=== PATIENT | female | born 1990 ===

== ENCOUNTER 2025-03-30 09:46 | Outpatient (CLI) | payer MEDICAID, SELFPAY ==
[2025-04-01 08:44] LABS: HPV Source Cervical
[2025-04-02 12:55] LABS: Pap Test Digital Imaging Done
== END 2025-03-30 09:47 | disposition home or self-care (01) ==
PROVIDERS: PCP Family Medicine; Visit Provider Family Medicine
DX: R10.9 Unspecified abdominal pain (principal); Z11.51 Encounter for screening for human papillomavirus (HPV); Z12.4 Encounter for screening for malignant neoplasm of cervix; Z13.6 Encounter for screening for cardiovascular disorders
CPT/HCPCS: 80053; 80061; 86140; 86364; 87624; 87625; 88141; 88142; 88175

== ENCOUNTER 2025-07-21 16:18 | Emergency (ER) | payer MEDICAID, SELFPAY ==
--- OUTSIDE RECORDS SUMMARY | 2025-07-21 16:19 | XMS_ITS | Clinical Summary ---
Author Organization [place] Address [facility] [place] [address] Care Team Providers Care Napper Grinder Name Role Phone No Ref-Primary, Physician Primary Care Provider Allergies No known active allergies Medications MedicationSigDispense QuantityRefillsLast FilledStart DateEnd DateStatus acetaminophen (TYLENOL) 500 MG tablet Indications:S/P sectionTake 2 tablets (1,000 mg) by mouth every 4 hours as needed for other (multimodal surgical pain management along with NSAIDS and opioid medication as indicated based on pain control and physical function) 30 tablet 03/04/2020Active ferrous sulfate (FEROSUL) 325 (65 Fe) MG tablet Indications:Anemia due to blood loss, acuteTake 1 tablet (325 mg) by mouth daily 30 tablet 03/03/2020Active ibuprofen (ADVIL/MOTRIN) 200 MG tablet Indications:S/P sectionTake 3 tablets (600 mg) by mouth every 6 hours as needed for other (cramping) 30 tablet 03/03/2020Active oxyCODONE (ROXICODONE) 5 MG tablet Indications:S/P sectionTake 1 tablet (5 mg) by mouth every 4 hours as needed for moderate to severe pain 24 tablet 03/03/2020Active Active Problems ProblemNoted DateDiagnosed DateAnemia due to blood loss, acute03/03/2020S/P epkcita8903/01/2020Indication for care in labor or /28/2020 Social History Tobacco UseTypesPacks/DayYears UsedDateSmoking Tobacco: NeverSmokeless Tobacco: NeverAlcohol UseStandard Drinks/WeekCommentsNot Currently0 (1 standard drink = 0.6 oz pure alcohol)AUDIT-CAnswerDate RecordedQ1: How often do you have a drink containing alcohol?Never02/29/2020Average Number of DrinksNot on file02/29/2020 Frequency of Binge DrinkingNot on file02/29/2020Edinburgh Depression ScaleAnswerDate RecordedEdinburgh Depression Scale Duhqb022 Last EPDS Self Harm ResultNot on file03/04/2020CommentsNoSex and Gender InformationValueDate RecordedSex Assigned at BirthNot on fileLegal SexFemale 02/29/2020 10:53 AM CDTGender IdentityNot on fileSexual OrientationNot on file Last Filed Vital Signs Vital SignReadingTime TakenCommentsBlood Zmihdwmm384/6508 10:21 AM CDT Yzpry3320/31/2020 3:34 PM YSSXsmsvrclhdt91.5 ??C (97.7 ??F)03/04/2020 10:21 AM CDTRespiratory Briz938803/04/2020 10:21 AM CDTOxygen Vskmvogspc19%03/02/2020 5:35 AM CDTInhaled Oxygen Concentration--Weight--Height--Body Mass Index-- Plan of Treatment Not on file Care Teams Team MemberRelationshipSpecialtyStart DateEnd Date No Ref-Primary, Physician PCP - General03/01/20
[2025-07-21 16:22] VITALS: BP 110/73; PULSE 81; RESP 20; TEMP 36.2; O2SAT 99
--- NOTE | 2025-07-21 16:27 | CRLHL7_ITS ---
For Patients: As a result of the Century Cures Act, medical imaging exams and procedure reports are released immediately into your electronic medical record. You may view this report before your referring provider. If you have questions, please contact your health care provider. Indication: FALL, PAIN Technique: Three views of the right ankle Comparison: Right ankle radiograph on May 11, 2024 Findings/Impression: No acute fracture or malalignment. No ankle effusion. The bones are unremarkable. Minimal soft tissue edema along the lateral malleolus. Dictated by Iam Gallardo MD @ 07/21/2025 5:48:52 PM (Electronically Signed)
--- NOTE | 2025-07-21 16:48 | CRLHL7_ITS ---
For Patients: As a result of the Century Cures Act, medical imaging exams and procedure reports are released immediately into your electronic medical record. You may view this report before your referring provider. If you have questions, please contact your health care provider. INDICATION: Cervical spine tenderness. COMPARISON: None. TECHNIQUE: CT of the cervical spine without contrast. Multiplanar axial, coronal, and sagittal reformats were reconstructed. FINDINGS: No fracture. Reversal of the normal cervical lordosis is usually positional. Mild disc degenerative change. No facet arthritis. No severe neural foraminal narrowing. No central canal stenosis. No destructive bony lesions. No cervical prevertebral soft tissue swelling. Prominent bilateral cervical lymph nodes at multiple stations. One right level II a lymph node is technically enlarged by size criteria measures 1.5 x 1.0 cm. Normal zack architecture with a preserved fatty hilum. IMPRESSION: 1. No acute or traumatic findings on cervical spine CT. 2. Bilateral cervical adenitis. Correlate for symptoms. Please note that all CT scans at this facility use dose modulation, iterative reconstruction, and/or weight-based dosing when appropriate to reduce radiation dose to as low as reasonably achievable. Dictated by Aparna Sanchez MD @ 07/21/2025 5:45:37 PM (Electronically Signed)
--- NOTE | 2025-07-21 16:48 | CRLHL7_ITS ---
For Patients: As a result of the Cures Act, medical imaging exams and procedure reports are released immediately into your electronic medical record. You may view this report before your referring provider. If you have questions, please contact your health care provider. Indication: Righ groin/hip pain after fall Technique: Frontal view of the pelvis and frontal and lateral views of the right Comparison: None Findings/Impression: No acute fracture or malalignment. The bones are unremarkable. The soft tissues are without acute abnormality. Left of midline intrauterine device and a few tiny right pelvic phleboliths. Dictated by Iam Gallardo MD @ 07/21/2025 5:50:06 PM (Electronically Signed)
--- NOTE | 2025-07-21 16:48 | CRLHL7_ITS ---
For Patients: As a result of the Century Cures Act, medical imaging exams and procedure reports are released immediately into your electronic medical record. You may view this report before your referring provider. If you have questions, please contact your health care provider. INDICATION: Fall and hit back of head. COMPARISON: None. TECHNIQUE: CT of the brain / head without intravenous contrast. Multiplanar axial, coronal, and sagittal reformats were reconstructed. FINDINGS: No intracranial hemorrhage. Normal appearance of the white matter. No acute or subacute cortically based infarct. No cerebral edema. 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 No mass effect. Normal ventricles. No skull fractures. No worrisome focal bone lesion. IMPRESSION: 1. No acute or traumatic findings. 2. 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 No mass effect or hydrocephalus. Please note that all CT scans at this facility use dose modulation, iterative reconstruction, and/or weight-based dosing when appropriate to reduce radiation dose to as low as reasonably achievable. Dictated by Aparna Sanchez MD @ 07/21/2025 5:42:19 PM (Electronically Signed)
--- NOTE | 2025-07-21 17:54 | ED.FALL ---
HPI - Fall General Date Seen: 07/21/25 Chief Complaint: Fall/Minor Trauma Stated Complaint: fell, hit head, injured foot Time Seen by Provider: 07/21/25 16:35 Source: patient and telephone sterilizer Mode of arrival: wheelchair Limitations: no limitations History of Present Illness HPI Narrative: Patient is a 35-year-old female presenting to the emergency department for a fall. She states she hit the back of her head when she slipped on the ice. She also states she twisted her right ankle. Denies any numbness. States she has pain to her right groin and right ankle. Denies any foot or knee pain. Does states she is having some neck pain. Denies a headache. No other concerns at this time. Related Data Home Medications ?Medication ?Instructions ?Recorded ?Confirmed ashwagandha root extract 2 tab PO .QD 03/30/25 03/30/25 Allergies Allergy/AdvReac Type Severity Reaction Status Date / Time Latex, Natural Rubber Allergy Mild Verified 03/30/25 08:54 Review of Systems Narrative: Pertinent systems reviewed and were negative unless stated in HPI PFSH PFSH Surgical History History of esophagogastroduodenoscopy (EGD) ?Z98.890 - Other specified postprocedural states (ICD-10) Hx of cholecystectomy ?Z90.49 - Acquired absence of other specified parts of digestive tract (ICD-10) History of D&C ?Z98.890 - Other specified postprocedural states (ICD-10) History of ?Z98.891 - History of uterine scar from previous surgery (ICD-10) Family History Mother Diabetes Social History Narrative: Pbxi-in-wiye mom. Nonsmoker, no alcohol use. What is your current living situation?: I presently have a place to live Problems where you live: no known problems In the past 12 months, utilities in danger of being shut off: no In past 12 months, lack of transportation kept you from medical appts, meetings, work, or getting things needed for daily living: declined to answer In the past 12 mos, have been you worried that your food would run out before you had money to buy more?: sometimes true In the past 12 mos, the food you bought just didn't last and you didn't have money to buy more?: sometimes true How often does anyone, including family, friends and others, physically hurt you: never How often does anyone, including family, friends and others, insult or talk down to you: rarely How often does anyone, including family, friends and others, threaten you with harm: never How often does anyone, including family, friends and others, scream or curse at you: rarely Health Related Social Needs: food insecurity (Z59.41) and Other personal risk factors, not elsewhere classified (Z91.89) Exam Narrative: Exam Narrative: Const: Well-nourished, Well-developed, in mother distress Eyes: PERRL, no conjunctival injection, and symmetrical lids HENT: Atraumatic external nose and ears. Moist mucous membranes. CVS: Dorsalis pedis pulses 2+ bilaterally MSK:Extremities w/o deformity, tenderness noted to right groin and diffusely around the ankle on the right side. Worse to the lateral malleolus. No knee pain or foot pain on palpation. Midline cervical spine tenderness. Skin: Warm, Dry. No rashes or lesions. Neuro: Normal Muscle tone, No focal neurological deficits. Psych: Awake, Alert, & Oriented x3. Appropriate mood and affect. Const: Vital Signs, click to edit/add: Vital Signs - 24 hr 07/21/25 16:22 Temperature 97.2 F L Pulse Rate [Pulse Oximeter] 81 Respiratory Rate 20 Blood Pressure [Ri ght Upper Arm] 110/73 Pulse Oximetry 99 Oxygen Delivery Me thod Room Air Course Vital Signs Vital signs: Initial Vital Signs Temperature 97.2 F L 07/21/25 16:22 Temperature Source Temporal Artery Scan 07/21/25 16:22 Pulse Rate 81 07/21/25 16:22 Respiratory Rate 20 07/21/25 16:22 Blood Pressure 110/73 07/21/25 16:22 Blood Pressure Mean 85 07/21/25 16:22 Blood Pressure Position Sitting 07/21/25 16:22 Pulse Oximetry 99 07/21/25 16:22 Oxygen Delivery Method Room Air 07/21/25 16:22 Vital Signs Temperature 97.2 F L 07/21/25 16:22 Pulse Rate 81 07/21/25 16:22 Respiratory Rate 20 07/21/25 16:22 Blood Pressure 110/73 07/21/25 16:22 Pulse Oximetry 99 07/21/25 16:22 Oxygen Delivery Method Room Air 07/21/25 16:22 Temperature 97.2 F L 07/21/25 16:22 Pulse Rate 81 07/21/25 16:22 Respiratory Rate 20 07/21/25 16:22 Blood Pressure 110/73 07/21/25 16:22 Pulse Oximetry 99 07/21/25 16:22 Oxygen Delivery Method Room Air 07/21/25 16:22 Medications Administered Medications: Discontinued Medications Generic Name Dose Route Start Last Admin Trade Name Freq PRN Reason Stop Dose Admin Oxycodone HCl 5 mg 07/21/25 17:35 07/21/25 17:50 Oxycodone 5 Mg Tablet PO 07/21/25 17:36 5 mg ONCE ONE Administration MDM - Fall MDM Narrative Medical decision making narrative: Patient is a 35-year-old female presenting to emergency department for a fall. He has pain to the right ankle and right hip. Will order x-rays of these to look for signs of fractures. She does have the midlines cervical spine tenderness do this I will order that neck CT. Will also order a head CT. Images interpreted by myself and the radiologist independently. X-rays of the right hip showed no acute concerning abnormality. X-ray of the right ankle show some minimal soft tissue edema along the lateral malleolus consistent with her pain. No other abnormality seen. CT scan interpreted by myself and the radiologist showed no acute spinal injuries. She does have some bilateral cervical adenitis. Is not having any respiratory or infectious symptoms. 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 This can be follow-up outpatient. Did give her oxycodone for pain. She will be discharged. Crutches offered. Imaging Data X-ray right ankle: Attestation: I have reviewed the pertinent imaging results. Radiologist's impression: No acute fracture or malalignment. No ankle effusion. The bones are unremarkable. Minimal soft tissue edema along the lateral malleolus. Dictated by Iam Gallardo MD @ 07/21/2025 5:48:52 PM X-ray right hip: Attestation: I have reviewed the pertinent imaging results. Radiologist's impression: No acute fracture or malalignment. The bones are unremarkable. The soft tissues are without acute abnormality. Left of midline intrauterine device and a few tiny right pelvic phleboliths. Dictated by Iam Gallardo MD @ 07/21/2025 5:50:[address] scan cervical spine: Attestation: I have reviewed the pertinent imaging results. Radiologist's impression: 1. No acute or traumatic findings on cervical spine CT. 2. Bilateral cervical adenitis. Correlate for symptoms. Please note that all CT scans at this facility use dose modulation, iterative reconstruction, and/or weight-based dosing when appropriate to reduce radiation dose to as low as reasonably achievable. Dictated by Aparna Sanchez MD @ 07/21/2025 5:45:[address] scan head: Attestation: I have reviewed the pertinent imaging results. Radiologist's impression: 1. No acute or traumatic findings. 2. 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 No mass effect or hydrocephalus. Please note that all CT scans at this facility use dose modulation, iterative reconstruction, and/or weight-based dosing when appropriate to reduce radiation dose to as low as reasonably achievable. Dictated by Aparna Sanchez MD @ 07/21/2025 5:42:19 PM Discharge Plan Discharge Clinical Impression: Right ankle sprain Qualifiers: Encounter type: initial encounter Involved ligament of ankle: unspecified ligament Qualified Code(s): S93.401A - Sprain of unspecified ligament of right ankle, initial encounter Neck strain Qualifiers: Encounter type: initial encounter Qualified Code(s): S16.1XXA - Strain of muscle, fascia and tendon at neck level, initial encounter Patient Disposition: Home, Self-Care Condition: Stable Instructions: Ankle Sprain (ED) Additional Instructions: Take Tylenol and ibuprofen as needed for pain. If that is not working use the oxycodone. You can weight bear as tolerated. Use the crutches as needed. Do not be surprised if you have more pain tomorrow morning. Return to emergency department for new or worsening symptoms. I do recommend following through primary care provider for your ankle pain and and an incidental pineal cyst Prescriptions: No Action debby root extract 2 tab PO .QD Follow Up/Referrals: Mani Webb MD [Primary Care Provider, Family Practice] Stand Alone Forms: [employer] Info Instructions
--- OUTSIDE RECORDS SUMMARY | 2025-07-21 18:04 | XMS_ITS | Data Portability ---
Author Organization [facility] Address [address] [place] [address] [place] [facility] [address] Assessment Encounter Date Assessment Date Assessment LastModified by Organization Details LastModified Time 05/05/2024 05/05/2024 - per katarina patrick check labs and imaging thyroid - XR RLE - request that patient sign up for Family Planning and schedule WWE for pap, evaluation of discharge, IUD xmtmrgcjjbmojxsmmktc6Dde rsgegqyyg43/02/2024 13:30:29 Plan of Treatment Reminders Order DateSubmit DateProviderLast Modified ByOrganization DetailsLast Modified TimeDetailsAppointmentsNone recorded.LabCBC w/ auto diff/09/2023 ATHENANot /09/2024 15:04:30CMP, serum or dunjpx64 ATHENANot wpuhgpnmb09/08/2024 16:22:55TSH, serum or enbljb59/09/2023 ATHENANot fpvivpwpa20/08/2024 19:48:32lipid panel, serum/09/2023 ATHENANot cnbexffme53/09/2024 15:04:30ReferralNone recorded.ProceduresNone recorded.SurgeriesNone recorded.ImagingUS, qihbfgg84THENANot wsujfczjv25/05/2024 17:47:20XR, ankleTHENANot available 07/08/2024 17:39:42Medication OrdersNone recorded. Patient TargetsNo targets recorded. Patient InstructionsNo instructions recorded. Reason for Referral None Reported. Results Created Date Observation Date Name Description Value Unit Range Abnormal Flag Note LastModifiedBy Organization Detail LastModifiedTime 05/13/2024 05/13/2024 lipid panel, serum creatinine 0.6 Not AvailableNot Sipfbkxip27/10/2024 13:15:241lipid panel, rhogkREA65Jaz AvailableNot Jczluohfb68/10/2024 13:15:241/05/2024lipid panel, serumwhite blood count6.57Not AvailableNot Ssdpqesob23/10/2024 13:15:24 lipid panel, nfeqsQAY33.9Not AvailableNot Available 05/13/2024 13:15:241lipid panel, dbgqxkgy926Dqg AvailableNot Zorpremwd68/10/2024 13:15:241lipid panel, serumtotal bltqqylwafn401xhiyNyk AvailableNot Vtexcguou12/10/2024 13:15:05/13/2024lipid panel, wmzmreomfckbqcogpl988hxiiKdu AvailableNot Available 05/13/2024 13:15:241lipid panel, brrzzTPQ49tsnFwf Available Not Pqdthtgme32/10/2024 13:15:241lipid panel, svaoxESW513uxdm Not AvailableNot Awmrtqtbm69/10/2024 13:15:BC w/ auto diffcreatinine0.6Not AvailableNot Clnbfuxei95/10/2024 13:09:05/13/2024BC w/ auto knlyUJN80Biz AvailableNot Tbxqtpvun73/10/2024 13:09:36 BC w/ auto diffwhite blood count6.57Not AvailableNot Hmoemynnr46/10/2024 13:09:BC w/ auto gpqdUYN24.9Not AvailableNot Lfthkusqt41/10/2024 13:09:3610/10/710928/10/2024CBC w/ auto diffplt 292Not AvailableNot Qmnderles02/10/2024 13:09:BC w/ auto difftotal mjdwhkvcpab565awpoQiz AvailableNot Qqnzoecey97/10/2024 13:09:36 BC w/ auto wgizcnfwmslkqzspq595snpmLpj AvailableNot Cvdcvyvms98/10/2024 13:09:BC w/ auto jqbdBNN65zuvQgy AvailableNot Ysnmqexrl30/10/2024 13:09:BC w/ auto diffLDL 112highNot AvailableNot Tygikmqzf40/10/2024 13:09:MP, serum or plasmacreatinine0.6Not AvailableNot Owxjhcfgn81/08/2024 16:20:20 MP, serum or wyhboqZVR26Bgc AvailableNot Available 05/11/2024 16:20:MP, serum or plasmawhite blood count6.57 Not AvailableNot Bflxymicd43/08/2024 16:20:MP, serum or qalidcBGU21.9Not AvailableNot Sjllqoxgh95/08/2024 16:20: CMP, serum or dbdbhczml822Dnm AvailableNot Cibmlhils12/08/2024 16:20:20 MP, serum or plasmatotal xhtfsmaftzu915arnmPaw AvailableNot Mzvkpajbm91/08/2024 16:20:MP, serum or plasma dqfqvbhynngqy472llkgYxv AvailableNot Mmomomlah19/08/2024 16:20:05/11/2024MP, serum or cmxbqgGOJ70vzfLrc AvailableNot Nlapiustc62/08/2024 16:20:MP, serum or nlumjbDLV970alntIch AvailableNot Mipxuzzik25/08/2024 16:20:TSH, serum or plasmaTSH1.780Not AvailableNot Ivjcrnpkh90/08/2024 22:19:19141XR, ankleNo observation recorded.xercfcz6Vhj Ehutniuyn82/06/2024 00:17:41109/08/2023 05/11/2024US, thyroidNo observation recorded.wubawif3Bii Nypesbyde50/06/2024 00:17:41 Result Notes None recorded. Problems Name Problem SNOMED Code Status Onset Date Resolution Date Notes Provider Name and Address Organization Details Recorded Time Human papillomavirus deoxyri bonucleic acid detected, high risk on cervical specimen 862117644 Active 06/13/202405/2023 pap + HPV 16 Colposcopy 06/2023 benign FU cotest in [address] [facility] [place], [address], [facility] [employer]06/13/2024 14:20:23Uses IUD (intrauterine device) etfwktiocdirz542216597Facjdq15/10/2024laced May 2023 NF+VEE SAEZ MD [address] [place] [address], [phone], [facility] [employer] Xxvcwrykdzebe72/10/2024 14:27:06 Problem Notes None recorded. Procedures Surgical History Date Name Laterality Status Provider Name and Address Organization Details Recorded Time 06/18/2023 Colonoscopy MD Ivy Dozier [facility] [place], [address], [facility] [employer] Doibnykplcufn71/10/2024 14:19:3Date of Last Pap SmearcompletedAMD Ivy MCDANIELS [facility] [place], [address], [facility] [employer] Veajiczvrpgns06/10/2024 14:18:Cesarean delivery MD Ivy Beck [facility] [place], [address], [facility] [employer] Djcojnyaqmzez51/02/2024 10:24:Cholecystectomy MD Ivy Beck [facility] [place], [address], [facility] [employer]05/05/2024 10:23:17 Imaging Results None recorded. Procedure Notes None recorded. Medical Equipment None Reported. Medications Name Sig Start Date Stop Date Status Note LastModified by Organization Details LastModified Time Mirena 21 mcg/24 hr (up to 8 years) 52 mg intrauterine device Take by intrauterine route. 05/30/2023 activePLaced at [facility] +CNot AvailableNot AvailableNot Available Vitals Date Recorded Body height Body mass index (BMI) Body weight Heart rate Oxygen saturation Systolic And Diastolic Provider Name and Address Organization Details Last Updated DateTime 4 154.94 cm 32.9 kg/m2 22359.0 7 g 69 /min 97 % 100/73 mm[Hg] Melinda Rockwell MD [address] [place] [address], [phone] , [place] [facility] 13:21:15 Social History None recorded. Functional Status None recorded. Mental Status None recorded. Family History Relationship Description Onset Age of this Age Resolved Age Notes LastModified by Organization Details LastModified Time Father No current problems or disabilit y jnbixqnxg6Hjb fshyznsjo70/02/2024 10:16:31MotherNo current problems or npptciamocxdduuoaqk2Siy /02/2024 10:16:31 Medical History No medical history recorded. Gynecological History Statement/Question Response Abnormal Pap Y Date of Last Pap Smear 06/02/2023 Colonoscopy 06/18/2023 Obstetrics History GPAL:G 3 P 0 0 0 3 Type Value Living 3 Total 3 Past Encounters Encounter ID Performer Location Encounter Start Date Encounter Closed Date Diagnosis/Indication Diagnosis SNOMED-CT Code Diagnosis ICD10 Code Diagnosis IMO Codes Diagnosis Note [id number] Melinda Rockwell MD [facility] [address] [place] [address] 05/05/2024 10:22:24 05/05/2024 11:34:25 Malaise and fatigue 555947612 R53.81 Contraception urqf516216246O32.40 Adult health zkrjrqhmfrx717734381N39.00 Thyroid sqkvtz916510774J97.1 Injury of right lfmbu60585471683371985T83.911A Mass of upper rnnx822684633H06.31 - small mass near R bicep, reassuring exam, present for years- likely small lipoma, continue watchful waiting Health Concerns Section Related Observation LastModified by Organization Detai ls LastModified Time None Recorded Concern Status LastModified by Organization Details LastModified Time None Recorded Advance Directives Directive None Recorded Payers Insurance Date Sequence Insurance Name Policy Number Policy Bella Covered Member ID Bella Member ID Guarantor Name 05/05/2024 1 *SELF PAY* Constanza Watson Bernardo Cotto Notes Date Note Type Note Provider Name and Address Bakari boateng Details Recorded Time 05/05/2024 text/html Constanza comes to clinic today to establish care.History of a thyroid abnromality on labs in [place] 6-7 years ago, never took medication, never had imaging. She occasionally has discomfort in her throat, no difficulties swallowing.Melinda Rockwell MD [address] [place] [address], [phone], [facility] [employer] Fudpgmeeeswvw50/02/2024 13:30:47 OBGyn Episode No OBEpisode recorded.
== END 2025-07-21 18:35 | disposition home or self-care (01) ==
PROVIDERS: Emergency Provider Student in an Organized Health Care Education/Training Program; PCP Family Medicine
DX: S93.401A Sprain of unspecified ligament of right ankle, initial encounter (principal); S16.1XXA Strain of muscle, fascia and tendon at neck level, initial encounter; D35.4 Benign neoplasm of pineal gland; M25.551 Pain in right hip; W00.0XXA Fall on same level due to ice and snow, initial encounter; Y93.01 Activity, walking, marching and hiking
CPT/HCPCS: 70450; 72125; 73502; 73610; 99284; 99285; A9270